=== PATIENT | female | born 1965 | race Caucasian/White ===

== ENCOUNTER 2016-10-22 05:27 | Day surgery (SDC) | payer BC ==
--- NOTE | ~2016-10-22 | OP ---
Record Of Operation [facility] [address] [place]. [address] NAME: JOSE ARMANDO DALEY : 67 STATUS : [facility]#: [id number] AGE: 51 ADM/REG DATE : 10/22/16 MR#: [id number] REPORT SERV DATE: 10/22/16 DICTATED BY: RIO TUCKER DATE: 10/22/16 REPORT STATUS : Draft TRANSCRIBED BY: MODL DATE: 10/22/16 DATE OF PROCEDURE: 10/22/2016 PREOPERATIVE DIAGNOSIS: Left knee medial meniscus tear. 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 PROCEDURE: Left knee arthroscopy, subtotal medial meniscectomy, chondroplasty of medial tibial plateau and patella. SURGEON: Sonam Tucker M.D. SUPERVISOR SCREEN PRINTING: See chart. DESCRIPTION OF PROCEDURE: The patient was taken to the operating room and placed supine on the table in normal fashion without incident. General anesthetic was induced per the anesthesiologist. The patient was carefully positioned, padded, prepped, and draped in the normal sterile fashion. After prophylactic preoperative antibiotics, two standard cross ports were placed, medial one under direct visualization over spine needle. Examination of the knee revealed a complex tear in the posterior horn of the medial meniscus, debrided with punch and shaver. There was also chondromalacia stage IV of the medial tibial plateau and stage III of the patella, debrided with a shaver and sealed with a contour. The rest of the knee was carefully probed to make sure there were no further lesions. Before and after pictures were taken. Instruments were removed. Wounds dressed sterilely. The patient was awakened and taken to the postanesthesia care unit without incident. COMPLICATIONS: None. SPECIMENS: None. ESTIMATED BLOOD LOSS: Trace. WTB/MODL Sonam Tucker M.D. / [id number] CC: Petra Barker WHITNEY L
[~2016-10-22 05:27] MED LIST: *DENIES; ALTA2.5 PO; ASAB PO; BENADRYL 50 MG50 MG PO; BRILINTA90 MG PO; COREG3 PO; COREG6 PO; CRESTOR5 MG PO; ENDOCET1 TA3 PO; GLUCOTROL5 PO; IMDUR30 PO; L40 PO; LEVEMFLXPN SC; LIPITOR40 PO; MAGOX4 PO; MEDROL32 MG PO; MULTIPLE VIT PO; NAP500 PO; NEXIUM40 PO; PEP20 PO; PERCOCET1 TA2 PO; PLAVIX PO; PRAVAC PO; PRECOSE25 MG PO; PRIN5 PO; PROAIR HFA INH; PROAIR HFA PO; PROTONIX PO; RAN500 PO; SPIRIVA INH; STARLIX60 PO; TURMERIC PO; VICTOZA18 MG/3 ML SC; X5 PO; XANAX1 MG PO; ZANAFLEX 4 MG TA4 MG PO; ZOCOR40 PO; ZYRTEC ALLGY10 MG PO
== END 2016-10-22 13:54 | disposition home or self-care (01) ==
LOC: SDC 05:27
PROVIDERS: Specialist
PROC: 0SBD4ZZ Excision of Left Knee Joint, Percutaneous Endoscopic Approach (ICD-10-PCS; principal; 2016-10-22 06:45)
DX: S83.242A Other tear of medial meniscus, current injury, left knee, initial encounter (principal); M94.28 Chondromalacia, other site; G47.33 Obstructive sleep apnea (adult) (pediatric); I10 Essential (primary) hypertension; K22.70 Barrett's esophagus without dysplasia; I25.10 Atherosclerotic heart disease of native coronary artery without angina pectoris; E11.9 Type 2 diabetes mellitus without complications; J44.9 Chronic obstructive pulmonary disease, unspecified; Z95.5 Presence of coronary angioplasty implant and graft; Z79.899 Other long term (current) drug therapy; Z79.891 Long term (current) use of opiate analgesic; Z79.82 Long term (current) use of aspirin; Z79.4 Long term (current) use of insulin; Z88.0 Allergy status to penicillin; Z88.5 Allergy status to narcotic agent; Z88.8 Allergy status to other drugs, medicaments and biological substances; Z91.041 Radiographic dye allergy status
CPT/HCPCS: 80048; 82962; 85014; 85018; 93005; A9270-GY; C2617; J0330; J0690; J2250; J2274; J2405; J2710; J3010